=== PATIENT | male | born 1955 | race African-American/Black ===

== ENCOUNTER 2017-02-13 08:22 | Emergency (ER) | payer OTHER ==
[2017-02-13 08:27] VITALS: TEMP 98.4; BMI 27.3
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
[2017-02-13] MEDS ORDERED: CYCLOBENZAPRINE HCL 10 MG TABLET (FP) PO ONE (09:02)
[2017-02-13] MEDS ORDERED: CYCLOBENZAPRINE HCL 10 MG TABLET (FP) ONE (09:05)
[2017-02-13] MEDS ORDERED: OXYCODONE/APAP 5/325MG COMBO TABLET PO ONE (10:46)
[2017-02-13] MEDS ORDERED: OXYCODONE/APAP 5/325MG COMBO TABLET ONE (10:49)
[2017-02-13 10:51] LABS: BASOPHIL 0.8 % (0-2.0); EOSINOPHIL 1.2 % (0-4.5); MCH 34.2 pg (25.7-33.7); MCHC 33.2 g/dl (32.0-35.9); MEAN CELL VOLUME 103.1 fl (80-96); NEUTROPHILS 60.1 % (42.8-82.8); PLATELET COUNT 159 K/MM3 (134-434); RDW 14.2 % (11.9-15.9); WHITE BLOOD COUNT 8.1 K/mm3 (4.0-10.0)
[2017-02-13 11:02] VITALS: BP 143/111; PULSE 78
[2017-02-13 11:04] LABS: INR 1.12 (0.82-1.09); PROTHROMBIN TIME (PATIENT) 12.3 SEC (9.98-11.88)
[2017-02-13 11:26] LABS: ALBUMIN 4.1 g/dl (3.4-5.0); ALK PHOS 95 U/L (45-117); ANION GAP 7 (8-16); CALCIUM 10.1 mg/dL (8.5-10.1); CO2 30 mmol/L (21-32); COCKROFT - GAULT 75.75; CREATININE 1.2 mg/dL (0.7-1.3); GLUCOSE,RANDOM 81 mg/dL (74-106); SGOT/AST 34 U/L (15-37); SGPT/ALT 46 U/L (12-78); TOT PROT 7.8 g/dl (6.4-8.2)
== END 2017-02-13 15:15 | disposition home or self-care (01) ==
LOC: JER 08:22
DX: I77.89 Other specified disorders of arteries and arterioles (principal); M54.5 Low back pain; I73.9 Peripheral vascular disease, unspecified; V49.49XA Driver injured in collision with other motor vehicles in traffic accident, initial encounter; Y92.488 Other paved roadways as the place of occurrence of the external cause; I25.2 Old myocardial infarction; I10 Essential (primary) hypertension; F17.210 Nicotine dependence, cigarettes, uncomplicated; Z95.5 Presence of coronary angioplasty implant and graft; E78.00 Pure hypercholesterolemia, unspecified; J44.9 Chronic obstructive pulmonary disease, unspecified; G43.909 Migraine, unspecified, not intractable, without status migrainosus; Z79.01 Long term (current) use of anticoagulants
CPT/HCPCS: 36415; 75635-TC; 80053; 85025; 85610; 93926-TC; 93971-TC; 99285-25

== ENCOUNTER 2017-02-15 10:41 | Emergency (ER) | payer OTHER ==
[2017-02-15 10:45] VITALS: BP 125/90; PULSE 79; TEMP 97.4; BMI 27.3
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
== END 2017-02-15 12:50 | disposition home or self-care (01) ==
LOC: JERFT 10:41
DX: S39.92XD Unspecified injury of lower back, subsequent encounter (principal); V49.49XD Driver injured in collision with other motor vehicles in traffic accident, subsequent encounter
CPT/HCPCS: 99281-25; G0463-25

== ENCOUNTER 2017-02-17 09:21 | Day surgery (SDC) | payer OTHER ==
[2017-02-16 16:20] VITALS: BMI 28.0
[2017-02-17] MEDS ORDERED: LIDOCAINE HCL 1%, 10 MG/ML (20ML VIAL) ONE ×2 (11:12→11:18)
[2017-02-17] MEDS ORDERED: HEPARIN NA (PORCINE) 5,000 UNITS/ML 1ML VIAL ONE ×3 (11:12→11:36)
[2017-02-17] MEDS ORDERED: LIDOCAINE HCL 1%, 10 MG/ML (20ML VIAL) IJ ONE (11:24)
[2017-02-17] MEDS ORDERED: HEPARIN NA (PORCINE) 5,000 UNITS/ML 1ML VIAL SQ ONE (11:24)
[2017-02-17] MEDS ORDERED: MIDAZOLAM HCL 2 MG/2 ML SINGLE DOSE VIAL ONE ×2 (11:28→11:34)
[2017-02-17] MEDS ORDERED: ceFAZolin SODIUM 1 GM VIAL IVPB ONE (11:34)
[2017-02-17] MEDS ORDERED: ceFAZolin SODIUM 1 GM VIAL ONE (11:36)
--- NOTE | 2017-02-17 12:45 | OP ---
Operative Note - Note: Operative Date: 02/17/17 Pre-Operative Diagnosis: LLE claudication Operation: LLE angiogram, DCB angioplasty of SFA Findings: 100% stent occlusion Post-Operative Diagnosis: Same as Pre-op Surgeon: Dylan Ureña Anesthesia: Fractional Estimated Blood Loss (mls): 10 Operative Report Dictated: Yes
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
[2017-02-17] MEDS ORDERED: CLOPIDOGREL BISULFATE 75 MG TABLET (FP) PO ONE (13:00)
[2017-02-17] MEDS ORDERED: ONDANSETRON 4 MG/2 ML VIAL IVPUSH PRN (13:02)
[2017-02-17] MEDS ORDERED: oxyCODONE HCL 5 MG TABLET PO PRN (13:02)
[2017-02-17] MEDS ORDERED: LABETALOL HCL 5 MG/1 ML (100MG/20 ML VIAL) ONE (13:26)
[2017-02-17] MEDS ORDERED: LABETALOL HCL 5 MG/1 ML (100MG/20 ML VIAL) IVPUSH ONE (13:28)
[2017-02-17] MEDS ORDERED: hydrALAZINE HCL 20 MG/ML VIAL ONE (14:29)
[2017-02-17] MEDS ORDERED: hydrALAZINE HCL 20 MG/ML VIAL IVPUSH ONE (14:41)
[2017-02-17 15:27] VITALS: TEMP 98.7
[2017-02-17 17:22] VITALS: BP 144/90; PULSE 80
== END 2017-02-17 16:15 | disposition home or self-care (01) ==
LOC: JASU-SURG 09:21
PROVIDERS: ATTEND Surgery Vascular Surgery
PROC: 047L3Z1 Dilation of Left Femoral Artery using Drug-Coated Balloon, Percutaneous Approach (ICD-10-PCS; principal; 2017-02-17 11:00)
DX: I70.212 Atherosclerosis of native arteries of extremities with intermittent claudication, left leg (principal); Z72.0 Tobacco use
CPT/HCPCS: 37224; C1725; C2623; 76000-TC; 94760; J1644

== ENCOUNTER 2017-11-04 12:11 | Inpatient (IN) | payer OTHER ==
[2017-11-04 12:24] VITALS: BMI 26.6
--- NOTE | 2017-11-04 13:22 | PDOC ---
History of Present Illness - General Chief Complaint: Pain, Acute Stated Complaint: LEG PAIN/ Hx of Leg Stent Time Seen by Provider: 11/04/17 13:22 - History of Present Illness Initial Comments: 11/04/17 13:24 Mr. Antony is a 62 yo male w/ pmh of HTN, HLD, Seizures (takes 500 BID), COPD, PAD, [place] x 2 with stents (on plavix) with leg stent which has been occluded previously (100%) and subsequently had LLE angiogram with DCB angioplasty of SFA. He reports that on wednesday he had a seizure and has since had left lower leg pain that he reports feels similar to his last occlusion. He currently feels pain whenever he walks although he is fine at rest. The patient denies chest pain, shortness of breath, headache and dizziness. Denies fever, chills, nausea, vomit, diarrhea and constipation. Denies dysuria, frequency, urgency and hematuria. Allergies:NKDA Past History - Past Medical History Allergies/Adverse Reactions: Allergies Allergy/AdvReac Type Severity Reaction Status Date / Time No Known Drug Allergies Allergy Verified 11/04/17 12:24 Home Medications: Ambulatory Orders Aspirin [Aspirin EC] 81 mg PO DAILY 02/05/16 Atorvastatin Ca [Lipitor] 20 mg PO DAILY 02/05/16 Carvedilol [Coreg] 3.125 mg PO DAILY 02/05/16 Duloxetine HCl [Cymbalta] 20 mg PO DAILY 02/05/16 Levetiracetam [Keppra] 500 mg PO DAILY 02/05/16 Lisinopril [Zestril] 2.5 mg PO DAILY 02/05/16 Losartan Potassium [Cozaar -] 25 mg PO DAILY 02/05/16 Tiotropium [place] [Spiriva] 1 inh IH DAILY 02/05/16 Clopidogrel Bisulfate [Plavix -] 75 mg PO DAILY #30 tablet 02/13/16 Oxycodone HCl/Acetaminophen [Percocet 5-325 mg Tablet] 1 tab PO Q6H #5 tablet MDD 5 02/13/17 Anemia: No Asthma: Yes Cancer: No Cardiac Disorders: Yes ([place] X2) CVA: No COPD: Yes CHF: No Dementia: No Diabetes: No GI Disorders: No Disorders: No HTN: Yes Hypercholesterolemia: Yes Liver Disease: No Seizures: Yes (GRANDMAL SEIZURE ONE WEEK AGO) Thyroid Disease: No - Surgical History Abdominal Surgery: No Appendectomy: No Cardiac Surgery: Yes (CARDIAC STENTS; HEART ATTACK X 2) Cholecystectomy: No Lung Surgery: No Neurologic Surgery: No Orthopedic Surgery: No - Suicide/Smoking/Psychosocial Hx Smoking History: Current every day smoker Have you smoked in the past 12 months: Yes Number of Cigarettes Smoked Daily: 5 Information on smoking cessation initiated: No 'Breaking Loose' booklet given: 02/17/17 Hx Alcohol Use: No Drug/Substance Use Hx: No Substance Use Type: None Hx Substance Use Treatment: No Review of Systems - Review of Systems Comments:: 11/04/17 13:39 GENERAL/CONSTITUTIONAL: No fever or chills. No weakness. HEAD, EYES, EARS, NOSE AND THROAT: No change in vision. No ear pain or discharge. No sore throat. CARDIOVASCULAR: No chest pain or shortness of breath RESPIRATORY: No cough, wheezing, or hemoptysis. GASTROINTESTINAL: No nausea, vomiting, diarrhea or constipation. GENITOURINARY: No dysuria, frequency, or change in urination. MUSCULOSKELETAL: +Left calf pain with walking SKIN: No rash NEUROLOGIC: No headache, vertigo, loss of consciousness, or change in strength/ sensation. ENDOCRINE: No increased thirst. No abnormal weight change HEMATOLOGIC/LYMPHATIC: No anemia, easy bleeding, or history of blood clots. ALLERGIC/IMMUNOLOGIC: No hives or skin allergy. *Physical Exam - Vital Signs Last Vital Signs Temp Pulse Resp BP Pulse Ox 98.6 F 81 18 128/89 97 11/04/17 12:22 11/04/17 12:22 11/04/17 12:22 11/04/17 12:22 11/04/17 12:22 - Physical Exam Comments: 11/04/17 13:40 GENERAL: Awake, alert, and fully oriented, in no acute distress HEAD: No signs of trauma, normocephalic, atraumatic EYES: PERRLA, EOMI, sclera anicteric, conjunctiva clear ENT: Auricles normal inspection, hearing grossly normal, nares patent, oropharynx clear without exudates. Moist mucosa NECK: Normal ROM, supple, no lymphadenopathy, JVD, or masses LUNGS: No distress, speaks full sentences, clear to auscultation bilaterally HEART: Regular rate and rhythm, normal S1 and S2, no murmurs, rubs or gallops, peripheral pulses normal and equal bilaterally. ABDOMEN: Soft, nontender, normoactive bowel sounds. No guarding, no rebound. No masses EXTREMITIES: +All Lower extrmiety Pulses 2+ with sensation intact bilaterally NEUROLOGICAL: Cranial nerves II through XII grossly intact. Normal speech, normal gait, no focal sensorimotor deficits SKIN: Warm, Dry, normal turgor, no rashes or lesions noted. ED Treatment Course - LABORATORY CBC & Chemistry Diagram: 11/04/17 13:46 11/04/17 13:46 Medical Decision Making - Medical Decision Making 11/04/17 16:02 Mr. Antony is a 62 yo male w/ prior leg stent occlusion presenting for left leg pain. 100% occlusion noted by duplex. Vascular (Dr. Ureña) consulted and would like admitted for f/u with bilateral CTA w/ runoff. Dr. Ureña would like NPO at midnight and does not want any heparin at this time. Will comply. Dr. Bruno consulted for admission and agrees with plan. *DC/Admit/Observation/Transfer Diagnosis at time of Disposition: Claudication of left lower extremity - Discharge Dispostion Admit: Yes - Referrals Referrals: Jason Vegas [Primary Care Provider] - - Patient Instructions - Post Discharge Activity
[2017-11-04 14:34] LABS: BASO % 0.5 % (0-2.0); EOS % 1.8 % (0-4.5); HEMOGLOBIN 16.8 GM/dL (11.7-16.9); LYMPH % 28.3 % (8-40); MONO % 7.6 % (3.8-10.2); NEUT % 61.8 % (42.8-82.8); PLATELET COUNT 184 K/MM3 (134-434); RBC 4.95 M/mm3 (4.00-5.60); RDW 12.3 % (11.9-15.9); WHITE BLOOD COUNT 7.1 K/mm3 (4.0-10.0)
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
[2017-11-04 14:57] LABS: ALBUMIN 3.6 g/dl (3.4-5.0); ALK PHOS 108 U/L (45-117); ANION GAP 9 (8-16); BLOOD UREA NITROGEN 17 mg/dL (7-18); CALCIUM 9.4 mg/dL (8.5-10.1); CHLORIDE 108 mmol/L (98-107); CO2 26 mmol/L (21-32); CREATININE 1.2 mg/dL (0.7-1.3); GLUCOSE,RANDOM 97 mg/dL (74-106); SGPT/ALT 31 U/L (12-78); SODIUM 143 mmol/L (136-145); TOT PROT 7.2 g/dl (6.4-8.2)
[2017-11-04 15:00] LABS: BILIRUBIN,TOTAL 1.2 mg/dL (0.2-1.0)
[2017-11-04 15:03] LABS: POTASSIUM 4.1 mmol/L (3.5-5.1); SGOT/AST 32 U/L (15-37)
[2017-11-04 17:17] LABS: INR 1.01 (0.82-1.09); PROTHROMBIN TIME (PATIENT) 11.4 SEC (9.98-11.88)
[2017-11-04 17:20] LABS: ACTIVATED PTT 30.9 SECONDS (26.9-34.4)
[2017-11-04] MEDS ORDERED: oxyCODONE HCL 5 MG TABLET PO PRN (18:42)
[2017-11-04] MEDS ORDERED: ACETAMINOPHEN 325 MG TABLET (FP) PO PRN (18:42)
[2017-11-04] MEDS: CARVEDILOL 3.125 MG TABLET (FP) PO SCH (21:43)
[2017-11-04] MEDS ORDERED: ATORVASTATIN CA 40 MG TABLET (FP) PO SCH (22:00)
--- NOTE | 2017-11-04 22:06 | HP ---
CHIEF COMPLAINT: Left Leg Pain PCP: Dr. Bruno HISTORY OF PRESENT ILLNESS: This is a 62 y/o man PMHx of HTN, HLD, Seizures (on Keppra), COPD, PAD, IN (2 stents, Plavix), LLE angiogram with DCB angioplasty. Who presents to the ED with Left lower leg pain since last Wednesday. Patient reports the pain is resolved with rest. The patient reports having a Seizure on Wednesday without f/u with Neuro. Patient denies fever, chills, cough, SOB, CP, palpitations AP, N/V/D, constipation, dysuria. 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 Family History: Allergies No Known Drug Allergies Allergy (Verified 11/04/17 12:24) HOME MEDICATIONS: Home Medications Medication Instructions Recorded Aspirin [Aspirin EC] 81 mg PO DAILY 02/05/16 Atorvastatin Ca [Lipitor] 20 mg PO DAILY 02/05/16 Carvedilol [Coreg] 3.125 mg PO DAILY 02/05/16 Duloxetine HCl [Cymbalta] 20 mg PO DAILY 02/05/16 Levetiracetam [Keppra] 500 mg PO DAILY 02/05/16 Lisinopril [Zestril] 2.5 mg PO DAILY 02/05/16 Losartan Potassium [Cozaar -] 25 mg PO DAILY 02/05/16 Tiotropium [place] [Spiriva] 1 inh IH DAILY 02/05/16 Clopidogrel Bisulfate [Plavix -] 75 mg PO DAILY #30 tablet 02/13/16 Oxycodone HCl/Acetaminophen 1 tab PO Q6H #5 tablet MDD 5 02/13/17 [Percocet 5-325 mg Tablet] REVIEW OF SYSTEMS CONSTITUTIONAL: Absent: fever, chills, diaphoresis, generalized weakness, malaise, loss of appetite, weight change HEENT: Absent: rhinorrhea, nasal congestion, throat pain, throat swelling, difficulty swallowing, mouth swelling, ear pain, eye pain, visual changes CARDIOVASCULAR: Absent: chest pain, syncope, palpitations, irregular heart rate, lightheadedness , peripheral edema RESPIRATORY: Absent: cough, shortness of breath, dyspnea with exertion, orthopnea, wheezing, stridor, hemoptysis GASTROINTESTINAL: Absent: abdominal pain, abdominal distension, nausea, vomiting, diarrhea, constipation, melena, hematochezia GENITOURINARY: Absent: dysuria, frequency, urgency, hesitancy, hematuria, flank pain, genital pain MUSCULOSKELETAL: myalgia, arthralgia, Left leg pain Absent: joint swelling, back pain, neck pain SKIN: Absent: rash, itching, pallor HEMATOLOGIC/IMMUNOLOGIC: Absent: easy bleeding, easy bruising, lymphadenopathy, frequent infections ENDOCRINE: Absent: unexplained weight gain, unexplained weight loss, heat intolerance, cold intolerance NEUROLOGIC: Absent: headache, focal weakness or paresthesias, dizziness, unsteady gait, seizure, mental status changes, bladder or bowel incontinence PSYCHIATRIC: Absent: anxiety, depression, suicidal or homicidal ideation, hallucinations. PHYSICAL EXAMINATION Vital Signs - 24 hr 11/04/17 11/04/17 12:22 18:39 Temperature 98.6 F Pulse Rate 81 Pulse Rate [ 78 Radial] Respiratory 18 16 Rate Blood Pressure 128/89 Blood Pressure 125/84 [Left Arm] O2 Sat by Pulse 97 100 Oximetry (%) GENERAL: Awake, alert, and fully oriented, in no acute distress. HEAD: Normal with no signs of trauma. EYES: Pupils equal, round and reactive to light, extraocular movements intact, sclera anicteric, conjunctiva clear. No lid lag. EARS, NOSE, THROAT: Ears normal, nares patent, oropharynx clear without exudates. Moist mucous membranes. NECK: Normal range of motion, supple without lymphadenopathy, JVD, or masses. LUNGS: Breath sounds equal, clear to auscultation bilaterally. No wheezes, and no crackles. No accessory muscle use. HEART: Regular rate and rhythm, normal S1 and S2 without murmur, rub or gallop. ABDOMEN: Soft, nontender, not distended, normoactive bowel sounds, no guarding, no rebound, no masses. No hepatomegaly or splenomegaly. MUSCULOSKELETAL: Normal range of motion at all joints. No bony deformities or tenderness. No CVA tenderness. UPPER EXTREMITIES: 2+ pulses, warm, well-perfused. No cyanosis. No clubbing. No peripheral edema. LOWER EXTREMITIES:+1, left pulse, cool to touch. +2 Right pulses, warm, well- perfused. No calf tenderness. +1 non pitting left peripheral edema. NEUROLOGICAL: Cranial nerves II-XII intact. Normal speech. Gait not observed. PSYCHIATRIC: Cooperative. Good eye contact. Appropriate mood and affect. SKIN: Warm, dry, normal turgor, no rashes or lesions noted, normal capillary refill. Laboratory Results - last 24 hr 11/04/17 11/04/17 11/04/17 13:46 13:46 13:46 WBC 7.1 RBC 4.95 Hgb 16.8 D Hct 51.0 H MCV 103.0 H MCH 34.0 H MCHC 33.0 RDW 12.3 D Plt Count 184 MPV 8.0 Neutrophils % 61.8 Lymphocytes % 28.3 Monocytes % 7.6 Eosinophils % 1.8 Basophils % 0.5 PT with INR Cancelled INR Cancelled PTT (Actin FS) Cancelled Sodium 143 Potassium 4.1 Chloride 108 H Carbon Dioxide 26 Anion Gap 9 BUN 17 D Creatinine 1.2 Creat Clearance w eGFR > 60 Random Glucose 97 Lactic Acid Calcium 9.4 Total Bilirubin 1.2 H D AST 32 ALT 31 D Alkaline Phosphatase 108 Total Protein 7.2 Albumin 3.6 Blood Type Antibody Screen 11/04/17 11/04/17 11/04/17 13:46 13:46 16:30 WBC RBC Hgb Hct MCV MCH MCHC RDW Plt Count MPV Neutrophils % Lymphocytes % Monocytes % Eosinophils % Basophils % PT with INR 11.40 INR 1.01 PTT (Actin FS) 30.9 Sodium Potassium Chloride Carbon Dioxide Anion Gap BUN Creatinine Creat Clearance w eGFR Random Glucose Lactic Acid 1.4 Calcium Total Bilirubin AST ALT Alkaline Phosphatase Total Protein Albumin Blood Type O POSITIVE Antibody Screen Negative ASSESSMENT/PLAN: Problem 1. Acute Thrombosis Lower Extremity 2. Seizure Disorder Plan: Acute Thrombosis of Left Lower Extremity Vascular following Neurovascular checks Elevate extremity Monitor vitals Continue Eliquis Seizure Disorder Continue Keppra BID (per pt) Seizure Precautions Discussed with patient regarding Trazadone- concern for decreasing keppra threshold, consider d/c Dispo: Requires Inpatient care Problem List - Problem (1) Claudication of left lower extremity Code(s): I73.9 - PERIPHERAL VASCULAR DISEASE, UNSPECIFIED (2) HTN (hypertension) Code(s): I10 - ESSENTIAL (PRIMARY) HYPERTENSION (3) HLD (hyperlipidemia) Code(s): E78.5 - HYPERLIPIDEMIA, UNSPECIFIED (4) PAD (peripheral artery disease) Code(s): I73.9 - PERIPHERAL VASCULAR DISEASE, UNSPECIFIED (5) Seizures Code(s): R56.9 - UNSPECIFIED CONVULSIONS (6) COPD (chronic obstructive pulmonary disease) Code(s): J44.9 - CHRONIC OBSTRUCTIVE PULMONARY DISEASE, UNSPECIFIED (7) CAD (coronary artery disease) Code(s): I25.10 - ATHSCL HEART DISEASE OF [place] CORONARY ARTERY W/O ANG PCTRS (8) DVT prophylaxis Code(s): [id number] - Visit type - Emergency Visit Emergency Visit: Yes ED Registration Date: 11/04/17 Care time: The patient presented to the Emergency Department on the above date and was hospitalized for further evaluation of their emergent condition. - New Patient This patient is new to me today: Yes Date on this admission: 11/04/17 - Critical Care Critical Care patient: No
[2017-11-04] MEDS ORDERED: levETIRAcetam 500 MG TABLET (FP) PO ONE (23:15)
[2017-11-04] MEDS ORDERED: MELATONIN 5 MG TABLETS PO ONE (23:30)
[2017-11-05 08:10] LABS: ALBUMIN 3.4 g/dl (3.4-5.0); ANION GAP 6 (8-16); BLOOD UREA NITROGEN 14 mg/dL (7-18); CALCIUM 8.6 mg/dL (8.5-10.1); CHLORIDE 105 mmol/L (98-107); CO2 29 mmol/L (21-32); GLUCOSE,RANDOM 113 mg/dL (74-106); POTASSIUM 3.7 mmol/L (3.5-5.1); SGOT/AST 20 U/L (15-37); SODIUM 140 mmol/L (136-145)
[2017-11-05 08:12] LABS: ALK PHOS 82 U/L (45-117); BILIRUBIN,TOTAL 1.6 mg/dL (0.2-1.0); CHOLESTEROL 138 mg/dL (50-200); CREATININE 1.2 mg/dL (0.7-1.3); HDL CHOLESTEROL 44 mg/dL (40-60); HEMATOCRIT 50.5 % (35.4-49); HEMOGLOBIN 16.5 GM/dL (11.7-16.9); LDL CHOLESTEROL (ONLY SJRH) 86 mg/dL (5-100); MCHC 32.6 g/dl (32.0-35.9); MEAN CELL VOLUME 104.3 fl (80-96); MEAN PLT VOLUME 8.1 fl (7.5-11.1); PLATELET COUNT 185 K/MM3 (134-434); RBC 4.84 M/mm3 (4.00-5.60); RDW 12.4 % (11.9-15.9); SGPT/ALT 27 U/L (12-78); TOT PROT 6.6 g/dl (6.4-8.2); TRIGLYCERIDES 129 mg/dL (35-160); WHITE BLOOD COUNT 6.3 K/mm3 (4.0-10.0)
[2017-11-05] MEDS ORDERED: PT OWN MED DRAWER 7, Y5N ONE (09:45)
[2017-11-05] MEDS: CARVEDILOL 3.125 MG TABLET (FP) PO SCH ×2 (09:55→21:31)
[2017-11-05] MEDS ORDERED: levETIRAcetam 500 MG TABLET (FP) PO SCH ×2 (10:00)
[2017-11-05] MEDS ORDERED: TIOTROPIUM BROMIDE 18 MCG/INH (DEVICE W/ 5 CAPSULES) IH SCH (10:00)
[2017-11-05] MEDS ORDERED: LISINOPRIL 5 MG TABLET (FP) PO SCH (10:00)
--- NOTE | 2017-11-05 10:12 | EKG ---
Test Reason : Blood Pressure : / mmHG Vent. Rate : 063 BPM Atrial Rate : 063 BPM P-R Int : 138 ms QRS Dur : 084 ms QT Int : 426 ms P-R-T Axes : 072 -28 108 degrees QTc Int : 435 ms NORMAL SINUS RHYTHM POSSIBLE LEFT ATRIAL ENLARGEMENT LEFT VENTRICULAR HYPERTROPHY INFERIOR INFARCT (CITED ON OR BEFORE 05-FEB-2016) T WAVE ABNORMALITY, CONSIDER ANTEROLATERAL ISCHEMIA ABNORMAL ECG Confirmed by MD TATIANA, ASHLY ([id number]) on 11/05/2017 10:11:33 AM Referred By: Confirmed By:ASHLY SIMPSON MD
--- NOTE | 2017-11-05 11:12 | PN ---
Progress Note, Physician Chief Complaint: ASLEEP, COMFORTABLE AWAITING SURGERY - Current Medication List Current Medications: Active Medications Acetaminophen (Tylenol -) 650 mg PO Q6H PRN PRN Reason: PAIN LEVEL 1-5 Atorvastatin Calcium (Lipitor -) 40 mg PO HS [facility] Last Admin: 11/04/17 21:43 Dose: 40 mg Carvedilol (Coreg -) 3.125 mg PO BID [facility] Last Admin: 11/05/17 09:55 Dose: 3.125 mg Levetiracetam (Keppra -) 500 mg PO BID [facility] Last Admin: 11/05/17 09:55 Dose: 500 mg Lisinopril (Prinivil) 2.5 mg PO DAILY [facility] Last Admin: 11/05/17 09:55 Dose: 2.5 mg Oxycodone HCl (Roxicodone -) 10 mg PO Q6H PRN PRN Reason: PAIN LEVEL 6-10 Tiotropium [place] (Spiriva -) 1 puff IH DAILY [facility] - Objective Vital Signs: Vital Signs Temperature 97.4 F L 11/05/17 06:17 Pulse Rate 62 11/05/17 06:17 Respiratory Rate 20 11/05/17 06:17 Blood Pressure 127/75 11/05/17 06:17 O2 Sat by Pulse Oximetry (%) 100 11/04/17 18:39 Constitutional: Yes: Mild Distress Eyes: Yes: WNL HENT: Yes: WNL Neck: Yes: WNL Cardiovascular: Yes: WNL Respiratory: Yes: WNL Gastrointestinal: Yes: WNL Genitourinary: Yes: WNL Musculoskeletal: Yes: Muscle Weakness Extremities: Yes: Other Edema: No Peripheral Pulses WNL: Yes Integumentary: Yes: WNL Wound/Incision: Yes: Clean/Dry Neurological: Yes: WNL ...Motor Strength: LLE, RLE Psychiatric: Yes: WNL Labs: CBC, BMP 11/05/17 06:30 11/05/17 06:30 INR, PTT INR 1.01 (0.82-1.09) 11/04/17 16:30 Problem List - Problems (1) CAD (coronary artery disease) Code(s): I25.10 - ATHSCL HEART DISEASE OF [place] CORONARY ARTERY W/O ANG PCTRS Qualifiers: Coronary Disease-Associated Artery/Lesion type: unspecified vessel or lesion type Associated angina: without angina (2) COPD (chronic obstructive pulmonary disease) Code(s): J44.9 - CHRONIC OBSTRUCTIVE PULMONARY DISEASE, UNSPECIFIED Qualifiers: COPD type: unspecified COPD Qualified Code(s): J44.9 - Chronic obstructive pulmonary disease, unspecified (3) Claudication of left lower extremity Code(s): I73.9 - PERIPHERAL VASCULAR DISEASE, UNSPECIFIED (4) HTN (hypertension) Code(s): I10 - ESSENTIAL (PRIMARY) HYPERTENSION (5) PAD (peripheral artery disease) Code(s): I73.9 - PERIPHERAL VASCULAR DISEASE, UNSPECIFIED (6) Seizures Code(s): R56.9 - UNSPECIFIED CONVULSIONS Assessment/Plan AWAITING VASC SURGERY FOR ANGIOPLASTY LABS REVIEWED PAIN CONTROL MONITOR LABS CLEARED FOR SURGERY
[2017-11-05] MEDS ORDERED: PROPOFOL 20 ML ONE (16:40)
[2017-11-05] MEDS ORDERED: MIDAZOLAM HCL 2 MG/2 ML SINGLE DOSE VIAL ONE (16:41)
[2017-11-05] MEDS ORDERED: ONDANSETRON 4 MG/2 ML VIAL IVPUSH PRN ×2 (16:58→18:27)
[2017-11-05] MEDS ORDERED: ceFAZolin SODIUM 1 GM VIAL IVPB ONE (17:00)
[2017-11-05] MEDS ORDERED: LACTATED RINGERS SOLUTION 1,000 ML IV SCH ×2 (17:00→18:27)
[2017-11-05] MEDS ORDERED: LIDOCAINE HCL 1%, 10 MG/ML (20ML VIAL) ONE (17:05)
[2017-11-05] MEDS ORDERED: ceFAZolin SODIUM 1 GM VIAL ONE (17:12)
[2017-11-05] MEDS ORDERED: LIDOCAINE HCL 1%, 10 MG/ML (50 mL VIAL) IJ ONE (17:12)
[2017-11-05] MEDS ORDERED: ePHEDrine SULFATE 50 MG/1 ML AMPULE ONE (17:16)
[2017-11-05] MEDS ORDERED: SODIUM CHLORIDE 0.9% P/F 10 ML VIAL IJ ONE (17:17)
[2017-11-05] MEDS ORDERED: PROTAMINE SULFATE 50 MG/5 ML VIAL ONE ×2 (17:30→17:32)
--- NOTE | 2017-11-05 18:00 | OP ---
Operative Note - Note: Operative Date: 11/05/17
--- NOTE | 2017-11-05 18:05 | PN ---
Progress Note (short form) - Note Progress Note: Vascular Surgery LLE angioplasty Please send pt home on plavix. No more smoking. can go home in am Dylan yusuf DO
[2017-11-05] MEDS ORDERED: ACETAMINOPHEN 325 MG TABLET (FP) PO PRN (18:27)
[2017-11-05] MEDS ORDERED: CLOPIDOGREL BISULFATE 75 MG TABLET (FP) ONE (19:03)
[2017-11-05] MEDS ORDERED: oxyCODONE HCL 10 MG SUSTAINED ACTING TABLET ONE (19:04)
[2017-11-05] MEDS ORDERED: oxyCODONE HCL 5 MG TABLET ONE (19:07)
[2017-11-05] MEDS: oxyCODONE HCL 5 MG TABLET PO PRN (19:10)
[2017-11-05] MEDS: CLOPIDOGREL BISULFATE 75 MG TABLET (FP) PO SCH (19:10)
[2017-11-05] MEDS: levETIRAcetam 500 MG TABLET (FP) PO SCH (21:30)
[2017-11-05] MEDS: ATORVASTATIN CA 40 MG TABLET (FP) PO SCH (21:31)
[2017-11-06] MEDS: oxyCODONE HCL 5 MG TABLET PO PRN ×3 (05:45→21:29)
--- NOTE | 2017-11-06 08:20 | PN ---
Progress Note (short form) - Note Progress Note: Anesthesia Post op Pt seen and examined S:alert and awake O: Vital Signs Temperature 97.9 F 11/06/17 06:00 Pulse Rate 66 11/06/17 06:00 Respiratory Rate 18 11/06/17 06:00 Blood Pressure 129/72 11/06/17 06:00 O2 Sat by Pulse Oximetry (%) 95 11/05/17 21:00 A/P: Current Active Problems CAD (coronary artery disease) (Acute) COPD (chronic obstructive pulmonary disease) (Acute) Claudication of left lower extremity (Acute) DVT prophylaxis (Acute) HLD (hyperlipidemia) (Acute) HTN (hypertension) (Acute) PAD (peripheral artery disease) (Acute) Seizures (Acute) s/p angiogram/angioplasty Doing well post op Continue current care Ousmane Gunter MD
[2017-11-06 08:31] LABS: HEMATOCRIT 48.4 % (35.4-49); HEMOGLOBIN 15.9 GM/dL (11.7-16.9); MCH 34.5 pg (25.7-33.7); MCHC 32.9 g/dl (32.0-35.9); MEAN CELL VOLUME 104.7 fl (80-96); MEAN PLT VOLUME 8.3 fl (7.5-11.1); PLATELET COUNT 170 K/MM3 (134-434); RBC 4.62 M/mm3 (4.00-5.60); RDW 11.9 % (11.9-15.9); WHITE BLOOD COUNT 6.3 K/mm3 (4.0-10.0)
[2017-11-06 08:32] LABS: CHLORIDE 104 mmol/L (98-107); POTASSIUM 4.3 mmol/L (3.5-5.1); SODIUM 138 mmol/L (136-145)
[2017-11-06 08:37] LABS: ANION GAP 7 (8-16); BLOOD UREA NITROGEN 14 mg/dL (7-18); CALCIUM 8.4 mg/dL (8.5-10.1); CO2 27 mmol/L (21-32); CREATININE 1.3 mg/dL (0.7-1.3); GLUCOSE,RANDOM 93 mg/dL (74-106)
[2017-11-06] MEDS ORDERED: PT OWN MED DRAWER 7, Y5N ONE (09:19)
[2017-11-06] MEDS: levETIRAcetam 500 MG TABLET (FP) PO SCH ×2 (09:21→21:27)
[2017-11-06] MEDS: LISINOPRIL 5 MG TABLET (FP) PO SCH (09:21)
[2017-11-06] MEDS: TIOTROPIUM BROMIDE 18 MCG/INH (DEVICE W/ 5 CAPSULES) IH SCH (09:21)
[2017-11-06] MEDS: CLOPIDOGREL BISULFATE 75 MG TABLET (FP) PO SCH (09:21)
[2017-11-06] MEDS: CARVEDILOL 3.125 MG TABLET (FP) PO SCH ×2 (09:21→21:27)
--- NOTE | 2017-11-06 10:38 | OP ---
DATE OF OPERATION: 11/05/2017 PREOPERATIVE DIAGNOSIS: Left lower extremity claudication. POSTOPERATIVE DIAGNOSIS: Left lower extremity claudication. PROCEDURE: Left lower extremity angiogram, angioplasty via popliteal approach. SURGEON: Dylan Sena DO ANESTHESIA: Fractional. BLOOD LOSS: 20 mL INDICATION FOR PROCEDURE: The patient is a 62-year-old male who comes in with left lower extremity claudication for the last 2 weeks. He had angioplasty done with us in 2016 in February and has never come back to see us. He has continued smoking and does not take his Plavix and now has closure of his stents on CTA. Patient was consented for the procedure, understanding all risks, benefits, and alternatives; then taken to the operating room. DESCRIPTION OF PROCEDURE: Once in the operating room, he was laid down in a prone manner on the operating room table. We prepped and draped the back of the left knee in a sterile surgical manner. Under ultrasound guidance, we were able to visualize the left popliteal artery behind the knee. Next, 10 mL of lidocaine 1% was injected there. We then went ahead and took our micropuncture needle and punctured the popliteal artery. Micropuncture wire was inserted. Micropuncture sheath was inserted. A 0.035 floppy guidewire was inserted, and a traditional short 6-Faroese sheath was inserted. Next, 5000 units of IV heparin were administered to the patient. We then brought our wire along with a Quick-Cross catheter all the way up through the stent and into the iliac artery. Quick-Cross catheter was placed in the iliac artery, and we shot an angiogram showing that the iliac artery and the profunda were patent, but the SFA was occluded at its origin. We then went ahead and used an Ultraverse 6 x 150 balloon and performed angioplasty of the entire stent and a little bit above and below the stent in the SFA. We then shot a completion angiogram showing that the stent was patent, and there was good flow in the SFA. At this point, we removed our 6-Faroese sheath. Pressure was held behind the left knee for 5 minutes. After there was no more bleeding, area was wet and dried, and Dermabond was placed. The patient tolerated the procedure with no complication. The patient transferred to PACU in stable condition. DYLAN SENA DO [employer]/[id number]
[2017-11-06] MEDS: ATORVASTATIN CA 40 MG TABLET (FP) PO SCH (21:27)
[2017-11-07 08:41] LABS: HEMATOCRIT 49.5 % (35.4-49); HEMOGLOBIN 16.3 GM/dL (11.7-16.9); MCH 34.4 pg (25.7-33.7); MEAN PLT VOLUME 8.1 fl (7.5-11.1); PLATELET COUNT 187 K/MM3 (134-434); RBC 4.76 M/mm3 (4.00-5.60); WHITE BLOOD COUNT 4.6 K/mm3 (4.0-10.0)
[2017-11-07] MEDS ORDERED: PT OWN MED DRAWER 7, Y5N ONE (10:16)
[2017-11-07] MEDS: levETIRAcetam 500 MG TABLET (FP) PO SCH (10:16)
[2017-11-07] MEDS: TIOTROPIUM BROMIDE 18 MCG/INH (DEVICE W/ 5 CAPSULES) IH SCH (10:17)
[2017-11-07] MEDS: LISINOPRIL 5 MG TABLET (FP) PO SCH (10:17)
[2017-11-07] MEDS: CLOPIDOGREL BISULFATE 75 MG TABLET (FP) PO SCH (10:17)
[2017-11-07] MEDS: CARVEDILOL 3.125 MG TABLET (FP) PO SCH (10:17)
--- NOTE | 2017-11-07 11:02 | PN ---
Progress Note, Physician Chief Complaint: AWAKE ALERT POD #1 ANGIOPLASTY LEFT LEG FEELING BETTER - Current Medication List Current Medications: Active Medications Acetaminophen (Tylenol -) 650 mg PO Q6H PRN PRN Reason: PAIN LEVEL 1-5 Last Admin: 11/06/17 16:31 Dose: 650 mg Atorvastatin Calcium (Lipitor -) 40 mg PO HS [facility]PLACED BY [facility] Last Admin: 11/06/17 21:27 Dose: 40 mg Carvedilol (Coreg -) 3.125 mg PO BID REPLACED BY [facility] Last Admin: 11/07/17 10:17 Dose: 3.125 mg Clopidogrel Bisulfate (Plavix -) 75 mg PO DAILY REPLACED BY [facility] Last Admin: 11/07/17 10:17 Dose: 75 mg Levetiracetam (Keppra -) 500 mg PO BID REPLACED BY [facility] Last Admin: 11/07/17 10:16 Dose: 500 mg Lisinopril (Prinivil) 2.5 mg PO DAILY REPLACED BY [facility] Last Admin: 11/07/17 10:17 Dose: 2.5 mg Ondansetron HCl (Zofran Injection) 4 mg IVPUSH Q6H PRN PRN Reason: NAUSEA AND/OR VOMITING Oxycodone HCl (Roxicodone -) 10 mg PO Q6H PRN PRN Reason: PAIN LEVEL 6-10 Last Admin: 11/06/17 21:29 Dose: 10 mg Tiotropium [place] (Spiriva -) 1 puff IH DAILY REPLACED BY [facility] Last Admin: 11/07/17 10:17 Dose: 1 puff - Objective Vital Signs: Vital Signs Temperature 97.2 F L 11/07/17 07:51 Pulse Rate 52 L 11/07/17 07:51 Respiratory Rate 20 11/07/17 07:51 Blood Pressure 123/87 11/07/17 07:51 O2 Sat by Pulse Oximetry (%) 93 L 11/06/17 21:00 Constitutional: Yes: No Distress Eyes: Yes: WNL HENT: Yes: WNL Neck: Yes: WNL Cardiovascular: Yes: WNL Respiratory: Yes: WNL Gastrointestinal: Yes: WNL Genitourinary: Yes: WNL Musculoskeletal: Yes: WNL Extremities: Yes: WNL Edema: No Peripheral Pulses WNL: Yes Integumentary: Yes: WNL Wound/Incision: Yes: Clean/Dry Neurological: Yes: WNL ...Motor Strength: WNL Psychiatric: Yes: WNL Labs: CBC, BMP 11/07/17 07:00 11/06/17 07:00 INR, PTT INR 1.01 (0.82-1.09) 11/04/17 16:30 Problem List - Problems (1) CAD (coronary artery disease) Code(s): I25.10 - ATHSCL HEART DISEASE OF [place] CORONARY ARTERY W/O ANG PCTRS Qualifiers: Coronary Disease-Associated Artery/Lesion type: unspecified vessel or lesion type Associated angina: without angina (2) COPD (chronic obstructive pulmonary disease) Code(s): J44.9 - CHRONIC OBSTRUCTIVE PULMONARY DISEASE, UNSPECIFIED Qualifiers: COPD type: unspecified COPD Qualified Code(s): J44.9 - Chronic obstructive pulmonary disease, unspecified (3) Claudication of left lower extremity Code(s): I73.9 - PERIPHERAL VASCULAR DISEASE, UNSPECIFIED (4) HTN (hypertension) Code(s): I10 - ESSENTIAL (PRIMARY) HYPERTENSION (5) PAD (peripheral artery disease) Code(s): I73.9 - PERIPHERAL VASCULAR DISEASE, UNSPECIFIED (6) Seizures Code(s): R56.9 - UNSPECIFIED CONVULSIONS Assessment/Plan POD #1 LEFT LEG ANGIOPLASTY DOING WELL PAIN CONTROL MONITOR LABS CLEARED FROM SURGERY FOR DISCHARGE
--- NOTE | 2017-11-07 11:02 | DS ---
Physical Examination Vital Signs: Vital Signs Temperature 97.2 F L 11/07/17 07:51 Pulse Rate 52 L 11/07/17 07:51 Respiratory Rate 20 11/07/17 07:51 Blood Pressure 123/87 11/07/17 07:51 O2 Sat by Pulse Oximetry (%) 93 L 11/06/17 21:00 Constitutional: Yes: No Distress Eyes: Yes: WNL HENT: Yes: WNL Neck: Yes: WNL Cardiovascular: Yes: WNL Respiratory: Yes: WNL Gastrointestinal: Yes: WNL Renal/: Yes: WNL Musculoskeletal: Yes: WNL Extremities: Yes: WNL Edema: No Peripheral Pulses WNL: Yes Integumentary: Yes: WNL Wound/Incision: Yes: Clean/Dry Neurological: Yes: WNL ...Motor Strength: WNL Psychiatric: Yes: WNL Labs: CBC, BMP 11/07/17 07:00 11/06/17 07:00 Discharge Summary Reason For Visit: CLAUDICATION OF LOWER LEFT EXTREMITY Current Active Problems CAD (coronary artery disease) (Acute) COPD (chronic obstructive pulmonary disease) (Acute) Claudication of left lower extremity (Acute) DVT prophylaxis (Acute) HLD (hyperlipidemia) (Acute) HTN (hypertension) (Acute) PAD (peripheral artery disease) (Acute) Seizures (Acute) Hospital Course: ANGIOPLASTY LEFT LOWER EXTREMITY, FEELING BETTER, FULL ROM, DC HOME SEE PMD AND VASC SX 1 WEEK Condition: Improved - Instructions Diet, Activity, Other Instructions: NO TOBACCO USE LOW SALT LOW FAT DIET SEE DR CREWS 1 WEEK Referrals: Jason Vegas [Primary Care Provider] - Disposition: HOME - Home Medications Comprehensive Discharge Medication List: Ambulatory Orders Aspirin [Aspirin EC] 81 mg PO DAILY 02/05/16 Atorvastatin Ca [Lipitor] 20 mg PO DAILY 02/05/16 Carvedilol [Coreg] 3.125 mg PO DAILY 02/05/16 Duloxetine HCl [Cymbalta] 20 mg PO DAILY 02/05/16 Levetiracetam [Keppra] 500 mg PO DAILY 02/05/16 Lisinopril [Zestril] 2.5 mg PO DAILY 02/05/16 Losartan Potassium [Cozaar -] 25 mg PO DAILY 02/05/16 Tiotropium [place] [Spiriva] 1 inh IH DAILY 02/05/16 Clopidogrel Bisulfate [Plavix -] 75 mg PO DAILY #30 tablet 02/13/16 Oxycodone HCl/Acetaminophen [Percocet 5-325 mg Tablet] 1 tab PO Q6H #5 tablet MDD 5 02/13/17
[2017-11-07 12:07] VITALS: BP 147/89; PULSE 63; TEMP 98.5
== END 2017-11-07 11:20 | disposition home or self-care (01) | DRG 254 ==
LOC: JER 12:11 → JERBED 16:01 → J8W 19:20
PROVIDERS: ADMIT Family Medicine; ATTEND Family Medicine
PROC: B41GYZZ Fluoroscopy of Left Lower Extremity Arteries using Other Contrast (ICD-10-PCS; 2017-11-05)
PROC: 3E033GC Introduction of Other Therapeutic Substance into Peripheral Vein, Percutaneous Approach (ICD-10-PCS; 2017-11-05)
PROC: 047L3Z1 Dilation of Left Femoral Artery using Drug-Coated Balloon, Percutaneous Approach (ICD-10-PCS; principal; 2017-11-05 15:30)
DX: I73.9 Peripheral vascular disease, unspecified (principal); I10 Essential (primary) hypertension; E78.5 Hyperlipidemia, unspecified; J44.9 Chronic obstructive pulmonary disease, unspecified; I25.2 Old myocardial infarction; F17.210 Nicotine dependence, cigarettes, uncomplicated; G40.909 Epilepsy, unspecified, not intractable, without status epilepticus; G89.29 Other chronic pain; I25.10 Atherosclerotic heart disease of native coronary artery without angina pectoris
CPT/HCPCS: 36415; 75635-TC; 76000-TC; 80048; 80053; 80061; 83036; 83605; 83721; 85025; 85027; 85610; 85730; 86850; 86900; 86901; 93005; 93010; 93926-TC; 94760; 99281-25; J1644

== ENCOUNTER 2017-12-08 07:07 | Emergency (ER) | payer OTHER ==
[2017-12-08 07:57] VITALS: BP 149/72; PULSE 66; TEMP 98.3; BMI 26.5
[2017-12-08] MEDS ORDERED: IBUPROFEN 400 MG TABLET (FP) PO ONE ×2 (08:33→08:41)
--- NOTE | 2017-12-08 08:37 | PDOC ---
History of Present Illness - General Chief Complaint: Injury Stated Complaint: SLIP AND FALL Time Seen by Provider: 12/08/17 08:25 History Source: Patient Exam Limitations: No Limitations - History of Present Illness Initial Comments: 12/08/17 08:35 62 yr male with c/o right shoulder and arm pain after he slipped and fell this AM on ice. no head trauma no LOC. Occurred: reports: this morning Severity: reports: moderate Pain Location: reports: upper extremity (shoulder) Past History - Past Medical History Allergies/Adverse Reactions: Allergies Allergy/AdvReac Type Severity Reaction Status Date / Time No Known Drug Allergies Allergy Verified 12/08/17 07:39 Home Medications: Ambulatory Orders Aspirin [Aspirin EC] 81 mg PO DAILY 02/05/16 Duloxetine HCl [Cymbalta] 20 mg PO DAILY 02/05/16 Losartan Potassium [Cozaar -] 25 mg PO DAILY 02/05/16 Tiotropium [place] [Spiriva] 1 inh IH DAILY 02/05/16 Amlodipine Besylate [Norvasc -] 5 mg PO DAILY 11/07/17 Atorvastatin Ca [Lipitor] 40 mg PO HS #30 tablet 11/07/17 Carvedilol [Coreg -] 3.125 mg PO BID tablet 11/07/17 Clopidogrel Bisulfate [Plavix -] 75 mg PO DAILY #30 tablet 11/07/17 levETIRAcetam [Keppra -] 500 mg PO BID tablet 11/07/17 Anemia: No Asthma: Yes Cancer: No Cardiac Disorders: Yes (MA X2) CVA: No COPD: Yes CHF: No Dementia: No Diabetes: No GI Disorders: No Disorders: No HTN: Yes Hypercholesterolemia: Yes Liver Disease: No Seizures: Yes (GRANDMAL SEIZURE ONE WEEK AGO) Thyroid Disease: No - Surgical History Abdominal Surgery: No Appendectomy: No Cardiac Surgery: Yes (CARDIAC STENTS; HEART ATTACK X 2) Cholecystectomy: No Lung Surgery: No Neurologic Surgery: No Orthopedic Surgery: No - Suicide/Smoking/Psychosocial Hx Smoking History: Current every day smoker Have you smoked in the past 12 months: Yes Number of Cigarettes Smoked Daily: 5 Information on smoking cessation initiated: Yes 'Breaking Loose' booklet given: 12/08/17 Hx Alcohol Use: No Drug/Substance Use Hx: No Substance Use Type: None Hx Substance Use Treatment: No *Physical Exam - Vital Signs Last Vital Signs Temp Pulse Resp BP Pulse Ox 98.3 F 66 18 149/72 100 12/08/17 07:39 12/08/17 07:39 12/08/17 07:39 12/08/17 07:39 12/08/17 07:39 - Physical Exam General Appearance: Yes: Nourished, Appropriately Dressed HEENT: positive: EOMI, ANNMARIE, Normal ENT Inspection, TMs Normal, Pharynx Normal Neck: positive: Supple. negative: Tender Respiratory/Chest: positive: Lungs Clear, Normal Breath Sounds. negative: Chest Tender Cardiovascular: positive: Regular Rhythm, Regular Rate Gastrointestinal/Abdominal: positive: Normal Bowel Sounds, Soft Musculoskeletal: positive: Normal Inspection. negative: Vertebral Tenderness Extremity: positive: Normal Capillary Refill, Tender (anterior shoulder, tender to the right forearm ). negative: Swelling, Erythema Integumentary: positive: Normal Color, Dry, Warm Neurologic: positive: Fully Oriented, Alert, Normal Mood/Affect, Normal Response , Motor Strength 5/5 Procedures - Splinting Post-Proc Neuro Vasc Exam: normal Sling: Yes (right arm ) ED Treatment Course - RADIOLOGY Radiology Studies Ordered: Category Date Time Status FOREARM- RIGHT [RAD] Stat Radiology 12/08/17 08:34 Ordered SHOULDER-RIGHT [RAD] Stat Radiology 12/08/17 08:33 Ordered Medical Decision Making - Medical Decision Making 12/08/17 08:36 cc: slip and fall injured right shoulder pt also with one month pain to the right forearm worse with lifting heavy objects, pt asking for xray no neck pain no vetebral tenderness *DC/Admit/Observation/Transfer Diagnosis at time of Disposition: Contusion of shoulder Qualifiers: Encounter type: initial encounter Laterality: right Qualified Code(s): S40.011A - Contusion of right shoulder, initial encounter Forearm pain Qualifiers: Laterality: right Qualified Code(s): M79.631 - Pain in right forearm - Discharge Dispostion Disposition: HOME Condition at time of disposition: Good - Referrals Referrals: Jason Vegas [Primary Care Provider] - Fabrizio Gabriel MD [Staff Physician] - - Patient Instructions Additional Instructions: apply ice every 2hrs for 20 minutes for the next 2 days while awake remove to sleep and bathe follow with the orthopedist if symptoms worsen or persist please take tylenol extra strength for pain (over the counter) - Post Discharge Activity Forms/Work/School Notes: Back to Work
== END 2017-12-08 09:18 | disposition home or self-care (01) ==
LOC: JERFT 07:07 → JER 07:07 → JERFT 09:18
DX: S40.011A Contusion of right shoulder, initial encounter (principal); W00.1XXA Fall from stairs and steps due to ice and snow, initial encounter; Y93.89 Activity, other specified; Y92.038 Other place in apartment as the place of occurrence of the external cause; Y99.8 Other external cause status; I25.2 Old myocardial infarction; I10 Essential (primary) hypertension; F17.210 Nicotine dependence, cigarettes, uncomplicated; G40.909 Epilepsy, unspecified, not intractable, without status epilepticus
CPT/HCPCS: 73030-TC-RT-FY; 73090-TC-RT-FY; 99281-25

== ENCOUNTER 2018-06-20 07:37 | Observation (INO) | payer OTHER ==
[2018-06-20 07:52] VITALS: BMI 27.2
--- NOTE | 2018-06-20 07:58 | PDOC ---
History of Present Illness - General Chief Complaint: Chest Pain Stated Complaint: CHEST PAINS Time Seen by Provider: 06/20/18 07:58 History Source: Patient Exam Limitations: No Limitations - History of Present Illness Initial Comments: 06/20/18 12:08 Mr. Antony is a 62 yo M with a hx of peripheral arterial disease s/p left popliteal artery stent 2010, CAD s/p stent 2004, 2x SC (2004, 2010), seizures, HTN, and HLD who presents to the emergency department with chest pain. He states this began 1 week ago in the center right of the chest. He states its been constant and progressively worsening, currently feeling like "pressure" without radiation. It increases in intensity with deep breathing, palpation to the chest, and coughing. Endorses having mild SOB, fevers, and coughs. Denies a hx of PE, URI, or recent sick contacts. He denies the following: recent visual changes, FND, headaches, chest pain, abdominal pain, dysuria, hematuria, hematochezia, melena, diarrhea, constipation, leg pain/swelling, and paresthesia. Pmhx: Refer to above Shx: None Meds: cymbalta, cozar, Aspirin 81 mg, norvasc, coreg, lipitor, plavix, keppra, Social: Smokes 1/2 packs per day, consumes alcohol socially, and denies substance abuse. 06/20/18 12:10 Past History - Past Medical History Allergies/Adverse Reactions: Allergies Allergy/AdvReac Type Severity Reaction Status Date / Time No Known Drug Allergies Allergy Verified 06/20/18 07:44 Home Medications: Ambulatory Orders Aspirin [Aspirin EC] 81 mg PO DAILY 02/05/16 Duloxetine HCl [Cymbalta] 20 mg PO DAILY 02/05/16 Losartan Potassium [Cozaar -] 25 mg PO DAILY 02/05/16 Tiotropium [place] [Spiriva] 1 inh IH DAILY 02/05/16 Amlodipine Besylate [Norvasc -] 5 mg PO DAILY 11/07/17 Atorvastatin Ca [Lipitor] 40 mg PO HS #30 tablet 11/07/17 Carvedilol [Coreg -] 3.125 mg PO BID tablet 11/07/17 Clopidogrel Bisulfate [Plavix -] 75 mg PO DAILY #30 tablet 11/07/17 levETIRAcetam [Keppra -] 500 mg PO BID tablet 11/07/17 Anemia: No Asthma: Yes Cancer: No Cardiac Disorders: Yes (SC X2) CVA: No COPD: Yes CHF: No Dementia: No Diabetes: No GI Disorders: No Disorders: No HTN: Yes Hypercholesterolemia: Yes Liver Disease: No Seizures: Yes (GRANDMAL SEIZURE ONE WEEK AGO) Thyroid Disease: No - Surgical History Abdominal Surgery: No Appendectomy: No Cardiac Surgery: Yes (CARDIAC STENTS,cabg) Cholecystectomy: No Lung Surgery: No Neurologic Surgery: No Orthopedic Surgery: No - Suicide/Smoking/Psychosocial Hx Smoking History: Current every day smoker Have you smoked in the past 12 months: Yes Number of Cigarettes Smoked Daily: 10 Information on smoking cessation initiated: Yes 'Breaking Loose' booklet given: 06/20/18 Hx Alcohol Use: No Drug/Substance Use Hx: No Substance Use Type: None Hx Substance Use Treatment: No Review of Systems - Review of Systems Able to Perform ROS?: Yes Constitutional: Yes: Fever. No: Chills, Diaphoresis, Night Sweats HEENTM: No: Recent change in vision, Ear Pain, Nose Pain, Throat Pain, Mouth Pain Respiratory: Yes: Cough, Shortness of Breath. No: Hemoptysis Cardiac (ROS): Yes: Chest Pain. No: Irregular Heart Rate, Lightheadedness, Palpitations, Syncope, Chest Tightness ABD/GI: No: Blood Streaked Bowels, Constipated, Diarrhea, Nausea, Rectal Bleeding, Vomiting, Tarry Stools : No: Burning, Dysuria, Hematuria Musculoskeletal: No: Back Pain Integumentary: No: Rash Neurological: No: Headache, Numbness, Paresthesia, Weakness, Unsteady Gait, Ataxia Psychiatric: No: Stressors Endocrine: No: Unexplained Weight Gain Hematologic/Lymphatic: No: Anemia *Physical Exam - Vital Signs Last Vital Signs Temp Pulse Resp BP Pulse Ox 98.3 F 76 18 152/109 98 06/20/18 07:44 06/20/18 07:44 06/20/18 07:44 06/20/18 07:44 06/20/18 07:44 - Physical Exam General Appearance: Yes: Nourished, Appropriately Dressed HEENT: positive: EOMI, ANNMARIE, Normal ENT Inspection, Normal Voice, Symmetrical, TMs Normal, Pharynx Normal Neck: negative: Lymphadenopathy (R), Lymphadenopathy (L) Respiratory/Chest: positive: Lungs Clear, Normal Breath Sounds Cardiovascular: positive: Regular Rhythm, Regular Rate, S1, S2. negative: Systolic Murmur Vascular Pulses: Dorsalis-Pedis (R): 3+, Doralis-Pedis (L): 2+ Gastrointestinal/Abdominal: positive: Normal Bowel Sounds. negative: Tender Lymphatic: negative: Adenopathy Musculoskeletal: positive: Normal Inspection, CVA Tenderness, Other (tenderness to palpation at the site of pain in the chest on the center-right sternum. ) Extremity: positive: Normal Capillary Refill, Normal Inspection, Normal Range of Motion, Swelling, Erythema. 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, Fully Oriented, Alert, Normal Mood/ Affect, Normal Response, Motor Strength 5/5 Heart Score/ECG Review - History History: Moderately suspicious - Electrocardiogram EKG: Non specific repolarization disturbance - Age Age: 45-65 - Risk Factors Risk Factors Heart Score: Yes Hx Hypertension, Yes Hx Diabetes, Yes Smoking History Based on the list above the patient has:: >/=3 risk factors or Hx atherosclerotic disease - Troponin Troponin: </= normal limit - Score Heart Score - Total: 5 - ECG Intrepretation Comment:: 06/21/18 07:27 ventricular rate: 74 bpm, AK interval 140 ms, QRS duration 86 ms, QTc is [address] elevations or depressions noted. multiple t wave inversion located in leads: I, II, aVL, V4, V5, V6. These were previously there except for II. ED Treatment Course - LABORATORY CBC & Chemistry Diagram: 06/20/18 08:40 06/20/18 08:40 Medical Decision Making - Medical Decision Making 62 yo M with hx of PAD, CAD s/p 1x stent, 2x SC, HTN, HLD who presents to the emergency department with chest pain that is reproducible with palpation and worsens with deep inspiration and coughing. Ddx: ACS, pleuritis, costochondritis, PNA, aortic dissection, gastritis, GERD, zoster, initial vitals: Initial Vital Signs Temp Pulse Resp BP Pulse Ox 98.3 F 76 18 152/109 98 06/20/18 07:44 06/20/18 07:44 06/20/18 07:44 06/20/18 07:44 06/20/18 07:44 Work up: Laboratory Tests 06/20/18 06/20/18 08:40 08:40 WBC 4.6 RBC 4.57 Hgb 16.0 Hct 47.4 MCV 103.7 H MCH 35.1 H MCHC 33.8 RDW 12.6 Plt Count 234 D MPV 8.1 Absolute Neuts (auto) 2.3 Neutrophils % 49.1 D Lymphocytes % 36.7 D Monocytes % 10.7 H Eosinophils % 2.6 Basophils % 0.9 Nucleated RBC % 0 Sodium 144 Potassium 4.1 Chloride 110 H Carbon Dioxide 26 Anion Gap 8 BUN 15 Creatinine 1.1 Creat Clearance w eGFR > 60 Random Glucose 99 Calcium 9.3 Total Bilirubin 1.4 H AST 81 H D ALT 136 H D Alkaline Phosphatase 93 Creatine Kinase 151 Creatine Kinase Index 1.5 CK-MB (CK-2) 2.31 Troponin I 0.04 B-Natriuretic Peptide 457.79 H Total Protein 7.1 Albumin 3.8 CTA showed ulcerated plaque in the aortic arch, of which no acute pathologies seen on CTA. Patient was given 324 mg of aspirin in the department. Given the patients hx and presenting symptoms, should be admitted to obs tele. Consulted with Dr. Bruno who accepted the patient for observation. 06/21/18 07:33 06/21/18 07:34 *DC/Admit/Observation/Transfer Diagnosis at time of Disposition: CAD (coronary artery disease) Qualifiers: Coronary Disease-Associated Artery/Lesion type: unspecified vessel or lesion type [place] vs. transplanted heart: [place] heart Associated angina: with unspecified angina Qualified Code(s): I25.119 - Atherosclerotic heart disease of [place] coronary artery with unspecified angina pectoris - Discharge Dispostion Condition at time of disposition: Stable Decision to Admit order: Yes - Referrals - Patient Instructions - Post Discharge Activity
--- NOTE | 2018-06-20 08:06 | PDOC ---
Attending Attestation - HPI HPI: The patient is a 62 year old male with PMHx of seizures, COPD, HTN, HLD, CAD s /p 1 stent in 05, 2 MIs (2004 , 2010), PAD, LLE angiogram with DCB angioplasty , who presents with 1 week of chest pain. He describes his chest pain as: constant, worsening, pressure-like, non-radiating, located center right of chest, exacerbated when palpated, upon deep inspiration, and when he coughs. He states that he has never had this before. He reports associated mild sob, fever and cough. He reports that he is compliant with his medication. Denies h/o of PE, URI, or sick contacts. Denies recent leg swelling. Denies recent abdominal pain, hematuria, dysuria, headache, visual changes. Allergies: denies Meds: on Aspirin and Plavix. Social Hx: Smokes pack.day. Social EtOH use. No illicit drug use PCP: Jason Vegas Banquet Cook: Goes to [employer] <Michelle Addison - Last Filed: 06/20/18 09:45> - Resident Resident Name: Jason Montiel - ED Attending Attestation I have performed the following: I have examined & evaluated the patient, The case was reviewed & discussed with the resident, I agree w/resident's findings & plan, Exceptions are as noted - Physicial Exam PE: 06/20/18 08:23 GENERAL: The patient is in no acute distress. EYES: PERRLA, EOMI, sclera anicteric, conjunctiva clear. ENT: Ears normal, nares patent, oropharynx clear without exudates. Moist mucous membranes. NECK: Normal range of motion, supple without lymphadenopathy, JVD, or masses. LUNGS: Breath sounds equal, clear to auscultation bilaterally. No wheezes, and no crackles. HEART:Regular rate and rhythm, normal S1 and S2 without murmur, rub or gallop. ABDOMEN: Soft, nontender, normoactive bowel sounds. No guarding, no rebound. No masses palpable. EXTREMITIES: Normal range of motion, no edema. No clubbing or cyanosis. No erythema, or tenderness. NEUROLOGICAL: Cranial nerves II through XII grossly intact. Normal speech. No focal neurological deficits. MUSCULOSKELETAL: Back non-tender to palpation, no CVA tenderness SKIN: Warm, Dry, normal turgor, no rashes or lesions noted. - Medical Decision Making 06/20/18 08:21 62 yo M h/o CAD s/p [place] stent x 1 Has had chest pain x 1 week Increases when he palpates, takes a deep breath or coughs Described as pressure, no radiation Never had this before Has SOB, fever and cough No h/o PE PMH Meds: Asa, Plavix, coreg, norvasc Smokes 1/2 ppd Denies drug use 06/20/18 09:47 06/20/18 09:46 Laboratory Tests 06/20/18 06/20/18 08:40 08:40 WBC 4.6 Hgb 16.0 Hct 47.4 Plt Count 234 D Neutrophils % 49.1 D Lymphocytes % 36.7 D Sodium 144 Potassium 4.1 Chloride 110 H Carbon Dioxide 26 BUN 15 Creatinine 1.1 Random Glucose 99 AST 81 H D ALT 136 H D Creatine Kinase 151 Troponin I 0.04 B-Natriuretic Peptide 457.79 H 06/20/18 09:47 06/20/18 12:00 CTA pending CTA negative for PE Admitted for chest pain <Jia Holder - Last Filed: 06/22/18 10:25> Discharge Disposition <Michelle Addison - Last Filed: 06/20/18 09:45> - Discharge Dispostion Last Admission D/C Date: 11/07/17 Decision to Admit order: Yes <Jia Holder - Last Filed: 06/22/18 10:25> - Diagnosis CAD (coronary artery disease) Qualifiers: Coronary Disease-Associated Artery/Lesion type: unspecified vessel or lesion type [place] vs. transplanted heart: [place] heart Associated angina: with unspecified angina Qualified Code(s): I25.119 - Atherosclerotic heart disease of [place] coronary artery with unspecified angina pectoris - Discharge Dispostion Disposition: HOME Condition at time of disposition: Stable Heart Score/ECG Review - History History: Moderately suspicious - Electrocardiogram EKG: Non specific repolarization disturbance - Age Age: 45-65 - Risk Factors Risk Factors Heart Score: Yes Hx Hypercholesterolemia, Yes Hx Hypertension, Yes Smoking History Based on the list above the patient has:: >/=3 risk factors or Hx atherosclerotic disease - Troponin Troponin: </= normal limit - Score Heart Score - Total: 5 <Jia Holder - Last Filed: 06/22/18 10:25>
[2018-06-20] MEDS ORDERED: ASPIRIN 81 MG CHEWABLE TABLETS PO ONE (08:36)
[2018-06-20] MEDS ORDERED: ASPIRIN 81 MG CHEWABLE TABLETS ONE (08:40)
[2018-06-20 09:16] LABS: BASO % 0.9 % (0-2.0); EOS % 2.6 % (0-4.5); HEMATOCRIT 47.4 % (35.4-49); LYMPH % 36.7 % (8-40); MCH 35.1 pg (25.7-33.7); MCHC 33.8 g/dl (32.0-35.9); MEAN CELL VOLUME 103.7 fl (80-96); MEAN PLT VOLUME 8.1 fl (7.5-11.1); MONO % 10.7 % (3.8-10.2); NEUT % 49.1 % (42.8-82.8); PLATELET COUNT 234 K/MM3 (134-434); RBC 4.57 M/mm3 (4.00-5.60); RDW 12.6 % (11.9-15.9); WHITE BLOOD COUNT 4.6 K/mm3 (4.0-10.0)
[2018-06-20 09:23] LABS: ALBUMIN 3.8 g/dl (3.4-5.0); ANION GAP 8 MMOL/L (8-16); BILIRUBIN,TOTAL 1.4 mg/dL (0.2-1.0); BLOOD UREA NITROGEN 15 mg/dL (7-18); CALCIUM 9.3 mg/dL (8.5-10.1); CHLORIDE 110 mmol/L (98-107); CO2 26 mmol/L (21-32); CREATININE 1.1 mg/dL (0.7-1.3); GLUCOSE,RANDOM 99 mg/dL (74-106); POTASSIUM 4.1 mmol/L (3.5-5.1); SGOT/AST 81 U/L (15-37); SGPT/ALT 136 U/L (12-78); SODIUM 144 mmol/L (136-145); TOT PROT 7.1 g/dl (6.4-8.2)
[2018-06-20 09:26] LABS: ALK PHOS 93 U/L (45-117); N-TERMINAL BNP 457.79 pg/ml (5-125)
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
[2018-06-20] MEDS ORDERED: ACETAMINOPHEN 325 MG TABLET (FP) PO PRN (14:58)
[2018-06-20] MEDS ORDERED: LOSARTAN POTASSIUM 50 MG TABLET (FP) PO SCH (15:00)
[2018-06-20] MEDS ORDERED: amLODIPine BESYLATE 5 MG TABLET (FP) PO SCH (15:00)
[2018-06-20] MEDS ORDERED: PNEUMOC 13-VAL CONJ-DIP CRM/PF 0.5 ML DISP.SYRIN IM ONE (15:04)
--- NOTE | 2018-06-20 16:44 | EKG ---
Test Reason : Blood Pressure : / mmHG Vent. Rate : 074 BPM Atrial Rate : 074 BPM P-R Int : 140 ms QRS Dur : 086 ms QT Int : 388 ms P-R-T Axes : 060 -02 223 degrees QTc Int : 430 ms NORMAL SINUS RHYTHM POSSIBLE LEFT ATRIAL ENLARGEMENT INFERIOR INFARCT (CITED ON OR BEFORE 05-FEB-2016) T WAVE ABNORMALITY, CONSIDER LATERAL ISCHEMIA ABNORMAL ECG WHEN COMPARED WITH ECG OF 04-NOV-2017 16:43, NONSPECIFIC T WAVE ABNORMALITY, WORSE IN INFERIOR LEADS Confirmed by HERMAN ADAMS MD ([id number]) on 06/20/2018 4:44:31 PM Referred By: Confirmed By:HERMAN ADAMS MD
[2018-06-20] MEDS ORDERED: PNEUMOCOCCAL 23 VACCINE 0.5 ML VIAL IM ONE (17:00)
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
[2018-06-20] MEDS ORDERED: ATORVASTATIN CA 40 MG TABLET (FP) PO SCH (22:00)
[2018-06-20] MEDS: HEPARIN NA (PORCINE) 5,000 UNITS/ML 1ML VIAL SQ SCH (22:13)
[2018-06-20] MEDS: levETIRAcetam 500 MG TABLET (FP) PO SCH (22:13)
[2018-06-20] MEDS: CARVEDILOL 3.125 MG TABLET (FP) PO SCH (22:13)
[2018-06-21 07:50] LABS: CHLORIDE 103 mmol/L (98-107); POTASSIUM 3.7 mmol/L (3.5-5.1); SODIUM 139 mmol/L (136-145)
[2018-06-21 07:57] LABS: HEMOGLOBIN 16.1 GM/dL (11.7-16.9); MCH 35.2 pg (25.7-33.7); MCHC 33.5 g/dl (32.0-35.9); MEAN CELL VOLUME 104.9 fl (80-96); MEAN PLT VOLUME 8.1 fl (7.5-11.1); PLATELET COUNT 210 K/MM3 (134-434); RBC 4.58 M/mm3 (4.00-5.60); RDW 12.7 % (11.9-15.9); WHITE BLOOD COUNT 4.1 K/mm3 (4.0-10.0)
[2018-06-21 08:04] LABS: ALBUMIN 3.6 g/dl (3.4-5.0); ALK PHOS 91 U/L (45-117); ANION GAP 7 MMOL/L (8-16); BILIRUBIN,TOTAL 1.7 mg/dL (0.2-1.0); BLOOD UREA NITROGEN 16 mg/dL (7-18); CALCIUM 8.6 mg/dL (8.5-10.1); CHOLESTEROL 158 mg/dL (50-200); CO2 29 mmol/L (21-32); CREATININE 1.1 mg/dL (0.7-1.3); GLUCOSE,RANDOM 111 mg/dL (74-106); HDL CHOLESTEROL 33 mg/dL (40-60); SGOT/AST 77 U/L (15-37); SGPT/ALT 124 U/L (12-78); TOT PROT 6.8 g/dl (6.4-8.2); TRIGLYCERIDES 277 mg/dL (35-160)
--- NOTE | 2018-06-21 08:42 | DS ---
Physical Examination Vital Signs: Vital Signs Temperature 97.7 F 06/21/18 06:00 Pulse Rate 71 06/21/18 06:00 Respiratory Rate 16 06/21/18 06:00 Blood Pressure 148/100 06/21/18 06:00 O2 Sat by Pulse Oximetry (%) 96 06/20/18 20:00 Findings/Remarks: awake alert nad Constitutional: Yes: No Distress Eyes: Yes: WNL HENT: Yes: WNL Neck: Yes: WNL Cardiovascular: Yes: WNL Respiratory: Yes: WNL Gastrointestinal: Yes: WNL Renal/: Yes: WNL Musculoskeletal: Yes: WNL Extremities: Yes: WNL Edema: No Peripheral Pulses WNL: Yes Integumentary: Yes: WNL Wound/Incision: Yes: Clean/Dry Neurological: Yes: WNL ...Motor Strength: WNL Psychiatric: Yes: WNL Labs: CBC, BMP 06/21/18 05:30 06/21/18 05:30 Discharge Summary Reason For Visit: CORONARY ARTERY DISEASE Current Active Problems CAD (coronary artery disease) (Acute) Procedures: Principal: CTA CHEST Hospital Course: ADMITTED TO OBSERVATION CARDIAC CHEST PAIN, CTA NO PE, HOWEVER DOES HAVE CARDIAC PLAQUE. CARDIOLOGY F/U OUTPATIENT Condition: Stable - Instructions Diet, Activity, Other Instructions: DC HOME WITH FOLLOW UP WITH DR SIMPSON FROM CARDIOLOGY LOW FAT LOW SALT DIET Referrals: Jason Vegas [Primary Care Provider] - Disposition: HOME - Home Medications Comprehensive Discharge Medication List: Ambulatory Orders Aspirin [Aspirin EC] 81 mg PO DAILY 02/05/16 Duloxetine HCl [Cymbalta] 20 mg PO DAILY 02/05/16 Losartan Potassium [Cozaar -] 25 mg PO DAILY 02/05/16 Tiotropium [place] [Spiriva] 1 inh IH DAILY 02/05/16 Amlodipine Besylate [Norvasc -] 5 mg PO DAILY 11/07/17 Atorvastatin [place] [Lipitor] 40 mg PO HS #30 tablet 11/07/17 Carvedilol [Coreg -] 3.125 mg PO BID tablet 11/07/17 Clopidogrel Bisulfate [Plavix -] 75 mg PO DAILY #30 tablet 11/07/17 levETIRAcetam [Keppra -] 500 mg PO BID tablet 11/07/17
--- NOTE | 2018-06-21 08:47 | PN ---
Progress Note (short form) - Note Progress Note: WILL NEED LIVER ENZYMES REPEATED OUTPATIENT MILD TRANSAMINITIS ON LIPITOR BENEFIT OF LIPITOR OUTWEIGHS THE RISK UNLESS THE AST/ALT ARE HIGHER OVER THE NEXT WEEK. REPEAT LIVER ENZYMES IN 1 WEEK. Problem List - Problems (1) CAD (coronary artery disease) Code(s): I25.10 - ATHSCL HEART DISEASE OF [place] CORONARY ARTERY W/O ANG PCTRS Qualifiers: Coronary Disease-Associated Artery/Lesion type: unspecified vessel or lesion type [place] vs. transplanted heart: [place] heart Associated angina: with unspecified angina Qualified Code(s): I25.119 - Atherosclerotic heart disease of [place] coronary artery with unspecified angina pectoris (2) COPD (chronic obstructive pulmonary disease) Code(s): J44.9 - CHRONIC OBSTRUCTIVE PULMONARY DISEASE, UNSPECIFIED Qualifiers: COPD type: unspecified COPD Qualified Code(s): J44.9 - Chronic obstructive pulmonary disease, unspecified (3) Claudication of left lower extremity Code(s): I73.9 - PERIPHERAL VASCULAR DISEASE, UNSPECIFIED (4) DVT prophylaxis Code(s): [id number] - (5) HLD (hyperlipidemia) Code(s): E78.5 - HYPERLIPIDEMIA, UNSPECIFIED (6) HTN (hypertension) Code(s): I10 - ESSENTIAL (PRIMARY) HYPERTENSION (7) Seizures Code(s): R56.9 - UNSPECIFIED CONVULSIONS
[2018-06-21] MEDS ORDERED: PT OWN MED DRAWER 7, Y5N ONE (09:23)
[2018-06-21 09:27] VITALS: TEMP 98.3
[2018-06-21] MEDS: levETIRAcetam 500 MG TABLET (FP) PO SCH (09:32)
[2018-06-21] MEDS: CARVEDILOL 3.125 MG TABLET (FP) PO SCH (09:32)
[2018-06-21] MEDS: HEPARIN NA (PORCINE) 5,000 UNITS/ML 1ML VIAL SQ SCH (09:33)
[2018-06-21] MEDS ORDERED: RANOLAZINE E.R. 500 MG TABLET (FP) PO SCH (10:00)
[2018-06-21] MEDS ORDERED: amLODIPine BESYLATE 10 MG TABLET (FP) PO SCH (10:00)
[2018-06-21] MEDS ORDERED: DULoxetine HCL 20 MG CAPSULE.DR (FP) PO SCH (10:00)
[2018-06-21] MEDS ORDERED: ASPIRIN COATED 81 MG TABLET.EC PO SCH (10:00)
[2018-06-21] MEDS ORDERED: TIOTROPIUM BROMIDE 2.5 MCG (SPIRIVA) RESPIMAT INHALER IH SCH (10:00)
[2018-06-21] MEDS ORDERED: CLOPIDOGREL BISULFATE 75 MG TABLET (FP) PO SCH (10:00)
[2018-06-21] MEDS ORDERED: LOSARTAN 50MG/HCTZ 12.5MG 1 TAB (FP) PO SCH (10:00)
[2018-06-21 10:49] VITALS: BP 151/95; PULSE 63
== END 2018-06-21 11:17 | disposition home or self-care (01) ==
LOC: JER 07:37 → UNDOADMOB 10:08 → INTOOBSV 10:08 → JERBED 10:08 → UNDOADMOB 13:21 → JERBED 14:09 → J4W 14:09 → INTOOBSV 14:55 → OBSVTOIN 14:55 → J4W 06-21 08:42
PROVIDERS: ADMIT Family Medicine; ATTEND Family Medicine
PROC: 3E0234Z Introduction of Serum, Toxoid and Vaccine into Muscle, Percutaneous Approach (ICD-10-PCS; principal; 2018-06-21)
PROC: 3E0F7GC Introduction of Other Therapeutic Substance into Respiratory Tract, Via Natural or Artificial Opening (ICD-10-PCS; 2018-06-21)
DX: I25.119 Atherosclerotic heart disease of native coronary artery with unspecified angina pectoris (principal); I10 Essential (primary) hypertension; I73.9 Peripheral vascular disease, unspecified; I25.2 Old myocardial infarction; G40.909 Epilepsy, unspecified, not intractable, without status epilepticus; E78.5 Hyperlipidemia, unspecified; J45.909 Unspecified asthma, uncomplicated; J44.9 Chronic obstructive pulmonary disease, unspecified; F17.210 Nicotine dependence, cigarettes, uncomplicated; Z98.62 Peripheral vascular angioplasty status; Z95.5 Presence of coronary angioplasty implant and graft; Z79.82 Long term (current) use of aspirin; Z23 Encounter for immunization
CPT/HCPCS: 36415; 71275-TC; 74175-TC; 80053; 80061; 82550; 82553; 83036; 83721; 83880; 84484; 85025; 85027; 90732; 93005; 93010; 94640; 99285-25; G0009; G0378; J1644